=== PATIENT | female | born 1940 | race Caucasian/White ===

== ENCOUNTER 2021-03-31 14:27 | Outpatient (CLI) | payer MEDICARE | END 2021-03-31 14:28 | disposition home or self-care (01) | LOC: CSHMAMMO 14:27 | PROVIDERS: ATTEND Family Medicine | DX: Z12.31 Encounter for screening mammogram for malignant neoplasm of breast (principal); Z13.820 Encounter for screening for osteoporosis; M81.0 Age-related osteoporosis without current pathological fracture; M85.89 Other specified disorders of bone density and structure, multiple sites; Z80.3 Family history of malignant neoplasm of breast | CPT/HCPCS: 77063; 77067; 77080 ==

== ENCOUNTER 2021-10-09 09:15 | Outpatient (CLI) | payer MEDICARE | END 2021-10-09 09:16 | disposition home or self-care (01) | LOC: CSHULT 09:15 | PROVIDERS: ATTEND Family Medicine | DX: R09.89 Other specified symptoms and signs involving the circulatory and respiratory systems (principal) | CPT/HCPCS: 93880 ==

== ENCOUNTER 2022-05-05 14:23 | Outpatient (CLI) | payer MEDICARE | END 2022-05-05 14:24 | disposition home or self-care (01) | LOC: CSHMAMMO 14:23 | PROVIDERS: ATTEND Family Medicine | DX: Z12.31 Encounter for screening mammogram for malignant neoplasm of breast (principal); Z85.3 Personal history of malignant neoplasm of breast | CPT/HCPCS: 77063; 77067 ==